=== PATIENT | male | born 1945 | race Caucasian/White ===

== ENCOUNTER 2018-11-28 15:01 | Inpatient (IN) | payer OTHER, MEDICARE ==
[2018-11-28] MEDS ORDERED: Sodium Chloride 0.9% 10 ML Syringe FLUSH PRN (15:14)
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
[2018-11-28] MEDS: Lactated Ringers 1,000 ML IV SCH (15:21)
--- NOTE | 2018-11-28 16:38 | CT ---
Head CT Technique: Multiple axial sections through the brain were obtained. Intravenous contrast was not utilized. Comparison: No prior intracranial imaging is available. Findings: Atherosclerotic calcification is seen within the vertebral vessels and within the carotid siphon. Ventricles along with basal cisterns and sulci over the convexities are moderately prominent. Mild diminished density is noted within portions of the periventricular white matter which is compatible with small vessel ischemic demyelination change. No other abnormal parenchymal densities are seen. No evidence of intracranial hemorrhage. No midline shift or mass effect is seen. Bone window settings were reviewed which shows no acute calvarial abnormality. Visualized paranasal sinuses and mastoid sinuses show nothing acute. Impression: 1. Senescent change as noted above. 2. Nothing acute is appreciated on noncontrast head CT exam. Diagnostic code #2
--- NOTE | 2018-11-28 16:42 | CT ---
CT cervical spine Technique: Multiple axial sections were obtained from above C1 inferiorly to the bottom of T2. Reconstructed sagittal and coronal images were reviewed. Findings: Severe disc space narrowing is noted at C6-C7 with posterior spurring and anterior osteophytes. Lesser posterior spurring is noted at C5-C6 with lesser anterior osteophytes. Severe left-sided neural foraminal stenosis is noted at C6-C7 on the left side with moderate right-sided neural foraminal stenosis at C6-C7. Moderate left-sided neural foraminal stenosis is noted at C5-C6 on the left side. Other neural foramina are felt to be patent. No bony central canal stenosis is seen. Degenerative change is noted between the dens and anterior arch of C1. Diffuse degenerative apophyseal change is seen. No fracture is seen. No abnormal subluxation is identified. Impression: 1. Degenerative change as noted above. 2. Nothing acute is appreciated on CT study of the cervical spine. Diagnostic code #2
--- NOTE | 2018-11-28 16:57 | CT ---
CT lumbar spine Technique: Multiple axial sections through the lumbar spine were obtained. Reconstructed coronal and sagittal images were obtained. Findings: Moderate anterior wedge deformity is seen within the superior endplate of L2. Acute fracture lines are seen within the superior endplate of this vertebral body. There is slight extension of a fracture line into a portion of the left pedicle. Fracture is also noted at the junction of the lamina within L2 involving the base of the spinous process extending into the central canal. No retrolisthesis fragments are seen. No additional lumbar spine fracture is seen. Disc space narrowing is noted within the lumbar spine. Degenerative apophyseal change is noted. Scattered disc bulging is also seen. No abnormal subluxation is seen. Impression: 1. Acute anterior wedge deformity within the superior endplate of L2. As mentioned above, fracture line extends into a portion of the left pedicle as well as additional fracture at the junction of both lamina at the base of the spinous process which extends into the central canal. No retrolisthesis fragments or abnormal subluxation is seen. 2. Degenerative change. No other acute finding is seen. Diagnostic code #5
--- NOTE | 2018-11-28 16:57 | CT ---
Portable CT thoracic spine Technique: Multiple axial sections through the thoracic spine were obtained. Reconstructed coronal and sagittal images were reviewed. Comparison: No prior thoracic spine imaging. Findings: Flowing anterior endplate osteophytes are seen. Mild diffuse disc space narrowing is seen. Vertebral body heights are maintained. No fracture or abnormal subluxation is seen. Impression: 1. Degenerative change. Nothing acute is seen on CT study of the thoracic spine. Diagnostic code #2
--- NOTE | 2018-11-28 16:58 | CT ---
CT chest Technique: Multiple axial sections through the chest are obtained. Intravenous contrast was utilized. Comparison: No prior chest imaging. Findings: Aorta shows atherosclerotic calcification without aneurysm. Mild coronary artery calcification is seen. Mediastinum shows no adenopathy. No fluid within the mediastinum is seen. No axillary adenopathy is identified. No pericardial fluid is seen. Lungs are clear with no acute parenchymal change. No pleural effusions or pneumothorax is seen. Bone window settings were reviewed which shows no acute osseous abnormality. Impression: 1. Findings as noted above believed to be incidental. 2. Nothing acute is seen on CT study of the chest. CT abdomen and pelvis Technique: Multiple axial sections were obtained from above the dome of the diaphragm inferiorly through the pubic symphysis. Intravenous contrast was utilized. No oral contrast has been given. Comparison: No prior abdominal imaging is available. Findings: 2 cysts are identified within the right lobe of the liver measuring 1.4 cm in size and 1.0 cm in size. No additional abnormality is seen within the liver. Spleen appears within normal limits. Pancreas is normal. Gallbladder contains a single large gallstone. Aorta shows atherosclerotic change. No extravasation of any contrast is seen. No aneurysm is identified. Kidneys show symmetric contrast enhancement without hydronephrosis or mass. Delayed images shows contrast within the ureters and bladder without contrast extravasation. No mesenteric abnormalities are seen. Diverticuli are seen within the sigmoid and descending colon without diverticulitis. Small fat-containing inguinal hernias are noted on both sides. No free fluid is seen. Bone window settings were reviewed which shows a moderate compression deformity of L2 which shows evidence of acute fracture lines and is acute. There is slight adjacent increased density within the retroperitoneum which is felt to be due to change from the compression deformity. No other acute osseous abnormality is seen. Impression: 1. Moderately severe anterior wedge deformity within L2 which appears acute. This causes some increased density within the adjacent retroperitoneum. 2. Other incidental findings. No other acute abnormality is seen. Diagnostic code #5
[2018-11-28] MEDS ORDERED: HYDROmorphone 0.5 MG/0.5 ML Syringe IVPUSH ONE (17:58)
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
[2018-11-28] MEDS ORDERED: Metoprolol Tartrate 5 MG/5 ML SDV IVPUSH PRN (20:56)
[2018-11-28] MEDS ORDERED: hydrALAZINE 20 MG/ML SDV IVPUSH PRN (20:56)
[2018-11-28] MEDS: Ibuprofen 800 MG Tab PO PRN (22:43)
[2018-11-29] MEDS: Lactated Ringers 1,000 ML IV SCH (00:58)
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
[2018-11-29] MEDS: Ibuprofen 800 MG Tab PO PRN ×3 (07:02→19:59)
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
[2018-11-29] MEDS: HYDROCHLOROTHIAZIDE 12.5 MG PO SCH (08:25)
[2018-11-29] MEDS: CLONAZEPAM 0.5 MG PO SCH ×3 (08:25→21:00)
[2018-11-29] MEDS: Tamsulosin 0.4 MG Cap.ER **PTOM PO SCH (08:25)
[2018-11-29] MEDS: FLUOXETINE HCL 40 MG PO SCH (08:26)
[2018-11-29] MEDS: Potassium Chloride 10 MEQ Tab.ER **PTOM PO SCH (08:26)
[2018-11-29] MEDS: Metoprolol Succinate 25 MG Tab.ER **PTOM PO SCH (08:28)
[2018-11-29] MEDS: Cyclobenzaprine 10 MG Tab PO PRN ×2 (12:47→20:00)
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
[2018-11-29] MEDS: Acetaminophen/HYDROcodone 325-5 MG Tab PO PRN (17:55)
[2018-11-29] MEDS ORDERED: WARFARIN 2.5 MG PO SCH (18:00)
[2018-11-29] MEDS ORDERED: Magnesium Hydroxide 400 MG/5 ML Susp 30 ML Cup PO PRN (19:45)
[2018-11-29] MEDS ORDERED: Docusate Sodium 100 MG Cap PO PRN (19:45)
[2018-11-30] MEDS: Acetaminophen/HYDROcodone 325-5 MG Tab PO PRN ×4 (04:25→18:44)
[2018-11-30] MEDS: Tamsulosin 0.4 MG Cap.ER **PTOM PO SCH (09:07)
[2018-11-30] MEDS: FLUOXETINE HCL 40 MG PO SCH (09:08)
[2018-11-30] MEDS: Potassium Chloride 10 MEQ Tab.ER **PTOM PO SCH (09:08)
[2018-11-30] MEDS: CLONAZEPAM 0.5 MG PO SCH (09:08)
[2018-11-30] MEDS: HYDROCHLOROTHIAZIDE 12.5 MG PO SCH (09:08)
[2018-11-30] MEDS: Metoprolol Succinate 25 MG Tab.ER **PTOM PO SCH (09:09)
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
[2018-11-30] MEDS ORDERED: WARFARIN 5 MG PO SCH ×2 (18:00)
[2018-11-30] MEDS ORDERED: Warfarin 5 MG Tab PO ONE (19:53)
[2018-12-01] MEDS: Acetaminophen/HYDROcodone 325-5 MG Tab PO PRN ×2 (06:12→14:47)
[2018-12-01] MEDS ORDERED: Metoprolol Succinate 25 MG Tab.ER PO SCH (09:00)
[2018-12-01] MEDS: ClonazePAM 0.5 MG Tab PO SCH ×2 (09:25→21:57)
[2018-12-01] MEDS: FLUoxetine 20 MG Cap PO SCH (09:25)
[2018-12-01] MEDS: Ibuprofen 800 MG Tab PO PRN ×2 (09:25→17:55)
[2018-12-01] MEDS: Cyclobenzaprine 10 MG Tab PO PRN ×2 (09:25→21:57)
[2018-12-01] MEDS: Tamsulosin 0.4 MG Cap.ER PO SCH (09:26)
[2018-12-01] MEDS: Metoprolol Succinate 25 MG Tab.ER PO SCH (09:26)
[2018-12-01] MEDS: Potassium Chloride 10 MEQ Tab.ER PO SCH (09:26)
[2018-12-01] MEDS: Hydrochlorothiazide 12.5 MG Cap PO SCH (09:26)
[2018-12-01] MEDS: Polyethylene Glycol 3350 Powder 17 GM Packet PO SCH (10:59)
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
[2018-12-01] MEDS ORDERED: Warfarin 7.5 MG Tab PO SCH (18:00)
[2018-12-02] MEDS: CLONAZEPAM 0.5 MG PO SCH (02:23)
[2018-12-02] MEDS: Polyethylene Glycol 3350 Powder 17 GM Packet PO SCH (09:38)
[2018-12-02] MEDS: FLUoxetine 20 MG Cap PO SCH (09:40)
[2018-12-02] MEDS: Metoprolol Succinate 25 MG Tab.ER PO SCH (09:41)
[2018-12-02] MEDS: Cyclobenzaprine 10 MG Tab PO PRN ×2 (09:41→19:55)
[2018-12-02] MEDS: ClonazePAM 0.5 MG Tab PO SCH ×3 (09:41→22:59)
[2018-12-02] MEDS: Hydrochlorothiazide 12.5 MG Cap PO SCH (09:43)
[2018-12-02] MEDS: Potassium Chloride 10 MEQ Tab.ER PO SCH (09:43)
[2018-12-02] MEDS: Ibuprofen 800 MG Tab PO PRN ×2 (09:44→19:55)
[2018-12-02] MEDS: Tamsulosin 0.4 MG Cap.ER PO SCH (09:44)
[2018-12-02] MEDS: Acetaminophen/HYDROcodone 325-5 MG Tab PO PRN (15:06)
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
[2018-12-02] MEDS ORDERED: metFORMIN 500 MG Tab PO SCH (17:00)
[2018-12-02] MEDS: Insulin Lispro 100 Units/ML 3 ML Vial SUBCUT SCH ×3 (17:31→22:57)
[2018-12-02] MEDS ORDERED: Warfarin 7.5 MG Tab PO SCH (18:00)
[2018-12-03] MEDS: Insulin Lispro 100 Units/ML 3 ML Vial SUBCUT SCH (05:59)
[2018-12-03] MEDS: Tamsulosin 0.4 MG Cap.ER PO SCH (08:30)
[2018-12-03] MEDS: Ibuprofen 800 MG Tab PO PRN (08:30)
[2018-12-03] MEDS: Hydrochlorothiazide 12.5 MG Cap PO SCH (08:30)
[2018-12-03] MEDS: Cyclobenzaprine 10 MG Tab PO PRN (08:30)
[2018-12-03] MEDS: Potassium Chloride 10 MEQ Tab.ER PO SCH (08:30)
[2018-12-03] MEDS: FLUoxetine 20 MG Cap PO SCH (08:30)
[2018-12-03] MEDS: ClonazePAM 0.5 MG Tab PO SCH (08:30)
[2018-12-03] MEDS: Polyethylene Glycol 3350 Powder 17 GM Packet PO SCH (08:31)
[2018-12-03] MEDS: Acetaminophen/HYDROcodone 325-5 MG Tab PO PRN (09:48)
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
== END 2018-12-03 09:50 | disposition home or self-care (01) | DRG 552 ==
LOC: JD.ED 15:01 → JD.MS 19:59 → OBSVTOIN 11-30 15:28
PROVIDERS: ADMIT Surgery; ATTEND Surgery
DX: S32.029A Unspecified fracture of second lumbar vertebra, initial encounter for closed fracture (principal); I10 Essential (primary) hypertension; F41.9 Anxiety disorder, unspecified; E66.9 Obesity, unspecified; R00.1 Bradycardia, unspecified; R79.1 Abnormal coagulation profile; E11.9 Type 2 diabetes mellitus without complications; N40.0 Benign prostatic hyperplasia without lower urinary tract symptoms; V89.2XXA Person injured in unspecified motor-vehicle accident, traffic, initial encounter; Z79.01 Long term (current) use of anticoagulants; Z86.711 Personal history of pulmonary embolism; Z68.34 Body mass index [BMI] 34.0-34.9, adult
CPT/HCPCS: 36415; 70450; 70450-26; 71260; 71260-26; 72125; 72125-26; 72128; 72128-26; 72131; 72131-26; 74177; 74177-26; 80053; 80306; 81001; 82962; 83036; 83690; 84484; 85025; 85610; 93005; 94760; 96361; 96374; 97110-GO; 97110-GP; 97116-GP; 97162-GP; 97166-GO; 97530-GO; 97530-GP; 99284; 99285-25; A9270-GY; G0378; G0480; J1170; J1815-GY; J7120